=== PATIENT | male | born 1985 | race Caucasian/White ===

== ENCOUNTER 2016-06-12 10:27 | Emergency (ER) | payer BC, OTHER ==
[2016-06-12 10:48] VITALS: RESP 20
[2016-06-12] MEDS ORDERED: APAP/HYDROCODONE 325/5 TAB PO ONE (10:56)
[2016-06-12] MEDS ORDERED: KETOROLAC TROMETHAMINE 30 MG/ML SOL IM ONE (10:56)
[2016-06-12] MEDS ORDERED: CYCLOBENZAPRINE 10 MG TAB PO ONE (10:56)
[2016-06-12] MEDS ORDERED: CYCLOBENZAPRINE 10 MG TAB ONE (10:58)
[2016-06-12] MEDS ORDERED: APAP/HYDROCODONE 325/5 TAB ONE (10:58)
[2016-06-12] MEDS ORDERED: KETOROLAC TROMETHAMINE 30 MG/ML SOL ONE (10:58)
[2016-06-12 11:47] VITALS: BP 137/77; PULSE 82; TEMP 96.4; O2SAT 98
== END 2016-06-12 11:45 | disposition home or self-care (01) ==
LOC: ED 10:27
DX: M54.5 Low back pain (principal)
CPT/HCPCS: 99283 ×2; J1885

== ENCOUNTER 2018-05-07 16:50 | Emergency (ER) | payer OTHER ==
[2018-05-07 17:03] VITALS: PULSE 84; RESP 20; TEMP 95.1; O2SAT 96
[2018-05-07] MEDS ORDERED: HYDROMORPHONE HCL 2 MG/ML SOL IM ONE (17:03)
[2018-05-07] MEDS ORDERED: CYCLOBENZAPRINE 10 MG TAB PO ONE (17:04)
[2018-05-07] MEDS ORDERED: HYDROMORPHONE 1 MG/ML SYRINGE ONE (17:11)
[2018-05-07] MEDS ORDERED: CYCLOBENZAPRINE 10 MG TAB ONE (17:12)
[2018-05-07] MEDS ORDERED: APAP/OXYCODONE 1 EACH TABLET PO ONE (18:59)
[2018-05-07] MEDS ORDERED: APAP/OXYCODONE 1 EACH TABLET ONE (19:01)
[2018-05-07 19:14] VITALS: BP 113/79
== END 2018-05-07 19:03 | disposition home or self-care (01) | DRG 552 ==
LOC: ED 16:50
DX: M54.5 Low back pain (principal)
CPT/HCPCS: 72131; 96372; 99283; A9270-GY; J1170